=== PATIENT | male | born 1965 | race Caucasian/White ===

== ENCOUNTER 2023-06-20 13:12 | Emergency (ER) | payer OTHER, SELFPAY ==
[2023-06-20 13:17] VITALS: BP 178/84
[2023-06-20 13:36] LABS: % Basophils 0.9 % (0-2); % Eosinophils 6.4 % (0-6); % Immature Granulocytes 0.3 % (0-0.5); % Lymphocytes 27.7 % (20.5-51.1); % Monocytes 8.3 % (1.7-9.3); % Neutrophils 56.4 % (42.2-75.2); Absolute Basophils 0.1 10^3/uL (0-0.2); Absolute Eosinophils 0.5 10^3/uL (0-0.7); Absolute Lymphocytes 2.2 10^3/uL (1.2-3.4); Absolute Monocytes 0.7 10^3/uL (0.1-0.6); Absolute Neutrophils 4.5 10^3/uL (1.4-6.5); Hematocrit 42.3 % (39.0-52.0); Hemoglobin 14.8 g/dL (13.0-18.0); Mean Corpuscular Hgb 31.2 pg (27.0-31.0); Mean Corpuscular Volume 89.1 fL (80.0-94.0); Mean Platelet Volume 9.9 fL (7.4-10.4); Nucleated Red Blood Cells % 0 % (-); Platelet Count 360 10^3/uL (130-400); Red Blood Cell Count 4.75 10^6/uL (4.70-6.10); Red Cell Dist. Width 12.8 % (11.5-14.5); White Blood Cell Count 7.9 10^3/uL (4.8-10.8)
[2023-06-20 13:48] LABS: ALT (SGPT) 43 U/L (0-50); AST (SGOT) 34 U/L (17-59); Albumin 4.6 g/dl (3.5-5.0); Alkaline Phosphatase 46 U/L (38-126); Blood Urea Nitrogen 22 mg/dl (9-20); Calcium 10.1 mg/dl (8.4-10.2); Carbon Dioxide 30 mmol/L (22-30); Chloride 100 mmol/L (98-107); Glucose 108 mg/dl (70-99); Potassium 4.8 mmol/L (3.5-5.1); Sodium 139 mmol/L (135-145); Total Bilirubin 0.6 mg/dl (0.2-1.3); Total Protein 6.9 g/dl (6.3-8.2); eGFR > 60.00
[2023-06-20 14:55] VITALS: BP 132/77; BP 149/73; BP 157/91; PULSE 63; PULSE 83; BMI 38.2
--- NOTE | 2023-06-20 15:47 | ED.GENMED ---
History of Present Illness
General
Chief Complaint: Dizziness
Source: patient
Exam Limitations: none
Time Seen by Provider: 06/20/23 14:18
Nursing documentation reviewed up to this point in time: agreed with
Travel History
Have you had any contact with someone who has COVID-19?: No
Do you have any symptoms of coronavirus? Fever > 100 degrees, chills, cough, shortness of breath, sore throat, loss of taste or smell, muscle aches, or headache?: No
History of Present Illness
History of Present Illness:
Patient presents to ED secondary to persistent lightheadedness, when standing up over the past 1 week, along with base of the neck/shoulder pain radiating up to back of his head, associated with bilateral arm tingling sensation over the past 3 days.
Denies fever or chills. Denies blurred vision. Denies difficulty with ambulation. Denies difficulty with speech. Denies weakness. Denies recent illness. Denies recent trauma or change in activities. Denies previous history of neck pain.
Denies recent change in medications or diet. Denies previous history of similar symptoms. Patient states that he does not drink or smoke. In addition, patient states that he drinks plenty water while at work.
Past History
Past History
ED Past Medical History: HTN and Other (Arthritis, Back pain, PNA, Colitis, IBS, chronic knee pain-maintained on Percocet)
ED Past Surgical History: Cholecystectomy, Orthopedic (Right Total knee ) and Other (Right knee surgery x [phone] for 'cleaning it up' )
Social History
Tobacco: Other (Chews Tobacco chews tobacco)
Alcohol: None
Drug: None
Personal:
Living: with family
Employment: Employed ([employer])
Family History
Family History: Hypertension and Cancer
Review of Systems
Review of Systems
Allergies reviewed?: Yes
All Other Systems: ROS reviewed and negative except as documented in HPI and ROS
Constitutional: Reports no symptoms
EENT: Reports no symptoms
Respiratory: Reports no symptoms
Cardiac: Reports no symptoms
ABD/GI: Reports no symptoms
: Reports no symptoms
Musculoskeletal: Reports neck pain
Skin: Reports no symptoms
Neurological: Reports dizzy, headache and numbness
Phy Exam
Physical Exam
Physical Exam:
Physical Exam
General: no apparent distress, not acutely ill. afebrile
Head: nc/at. eomi. perrla
Neck: supple. no meningeal signs.
Heart: s1/s2 regular rate and rhythm, no murmur. equal radial pulses.
Lungs: no acute respiratory distress. clear bilaterally
Abdomen: normal bowel sounds. not tender.
Neuro: alert and oriented. no focal sensory/motor deficits. normal speech. normal gait.
Skin: no rash
Psychiatric: well kept. interactive and cooperative
Extremities: no edema. no calf tenderness.
Course
Orders/Labs/Results
Orders:
Orders
06/20/23 13:17
EKG [Electrocardiogram (*1)] Urgent
Reason for Study: Vertigo / Dizzy
CT Head W/o Iv Contrast Urgent
Comment:
Reason For Exam: dizziness and headaches x1 week
EKG- Treatment ONCE
06/20/23 13:27
Complete Blood Count/With Diff Urgent
Comprehensive Metabolic Panel Urgent
06/20/23 14:55
Orthostatic VS- Treatment ONCE
06/20/23 15:38
Dexamethasone Pf [Decadron] 10 mg PO NOW STA
06/20/23 16:44
Troponin I Urgent
Abnormal Lab Results
06/20/23
13:27
MCH 31.2 H pg
(27.0-31.0)
Absolute Monos (auto) 0.7 H 10^3/uL
(0.1-0.6)
Eosinophils % 6.4 H %
(0-6)
BUN 22 H mg/dl
(9-20)
Glucose 108 H mg/dl
(70-99)
06/20/23 13:27
06/20/23 13:27
Vital Signs
Initial and Last Documented VS:
Initial Vital Signs
Temp Pulse Resp BP Pulse Ox
97.9 F 82 18 178/84 99
06/20/23 13:17 06/20/23 13:17 06/20/23 13:17 06/20/23 13:17 06/20/23 13:17
Last Documented Vital Signs
Temp Pulse Resp BP Pulse Ox
97.9 F 76 16 135/79 98
06/20/23 13:17 06/20/23 17:40 06/20/23 17:40 06/20/23 17:40 06/20/23 17:40
MDM/Problems Addressed
MDM/Problems Addressed:
CT head: No acute findings. Blood work without any acute abnormalities. History and exam consistent with likely cervical radiculopathy. As such, patient will be discharged home in stable condition with prescription for Medrol Dosepak, along with
recommendation to follow-up with PCP for reevaluation, including potential MRI as an outpatient.
*Critical Care Note
Total Time (30-74mins, 75-104mins- exclusive of procedures): Not Applicable
ED Attending Note
-
Portions of this chart may have been created with voice recognition software.� Occasional wrong word or��sound alike� substitutions may have occurred due to the inherent limitations of voice recognition software.
Discharge Plan
Departure
Patient Disposition: Home (Routine Discharge)
Date of Disposition: 06/20/23
Time of Disposition: 17:26
Patient with high blood pressure during this ER visit?: Yes
Condition: Good
Discharge Problem:
Cervical radiculopathy, Dizziness
Instructions: Radiculopathy (DC), Dizziness
Prescriptions:
New
methylprednisolone [Medrol (Jacobo)] 4 mg tablets,dose pack
4 mg PO DAILY Qty: 21 0RF
Rx Instructions:
As directed
No Action
oxycodone-acetaminophen 5 MG/325 MG tablet
2 tab PO Q6HPRN PRN (Reason: Pain)
ibuprofen 200 MG tablet
400 - 600 mg PO Q6HPRN PRN (Reason: moderate pain) Qty: 1 0RF
lisinopril 10 mg Tablet
20 mg PO DAILY
dicyclomine 20 mg tablet
20 mg PO QID PRN (Reason: abdominal pain) Qty: 20 0RF
Referrals:
Brittany Andres DO [Family Provider] -
Activity Restrictions/Additional Instructions:
As discussed, please follow-up with your primary care physician for reevaluation, including potential MRI as an outpatient, if your symptoms persist. Your prescription has been sent electronically to [facility] in [place].
Interventions
Interventions:
*Risk Screen - Suicide Last Done: 06/20/23 13:16
*General Assessment Last Done: 06/20/23 13:16
*Neglect/Abuse Screening Last Done: 06/20/23 13:16
ED- Fall Risk Assessment Last Done: 06/20/23 14:55
*ED COVID-19 Vaccine History Last Done: 06/20/23 13:16
*Nursing Disposition Last Done: 06/20/23 17:40
ED- Neurological Assessment Last Done: 06/20/23 14:55
ED- Cardiac Assessment Last Done: 06/20/23 18:03
ED Swallowing Screen Last Done: 06/20/23 14:55
Discharge Date and Time
Discharge Date/Time: 06/20/23 17:40
[2023-06-20] MEDS: DECADRON 10 MG PO (17:18)
[2023-06-20 17:25] LABS: Troponin I < 0.012 ng/ml
[2023-06-20 17:40] VITALS: BP 135/79
== END 2023-06-20 17:40 | disposition home or self-care (01) ==
LOC: EMR 13:12
PROVIDERS: Emergency Medicine; EMERGENCY PHYSICIAN Emergency Medicine; FAMILY PHYSICIAN Family Medicine
DX: M54.12 Radiculopathy, cervical region (principal); R42 Dizziness and giddiness; I10 Essential (primary) hypertension
CPT/HCPCS: 99285; 70450; 80053; 84484; 85025; 93005